=== PATIENT | female | born 1990 | race Caucasian/White ===

== ENCOUNTER 2020-09-24 09:01 | Emergency (ER) | payer MEDICAID ==
[~2020-09-24] VITALS: Ht 157.5 cm; Wt 42.0 kg
[2020-09-24 10:07] LABS: URINE HCG NEGATIVE (NEG)
[2020-09-24] MEDS ORDERED: ketorolac trometh. 30mg/ml inj. IM ONE (10:20)
[2020-09-24 10:44] VITALS: BP 97/60
== END 2020-09-24 10:46 | disposition home or self-care (01) ==
LOC: ER 09:02
DX: N92.0 Excessive and frequent menstruation with regular cycle (principal); R10.84 Generalized abdominal pain; R11.2 Nausea with vomiting, unspecified; Z79.899 Other long term (current) drug therapy
CPT/HCPCS: 81025; 96372; 99283; J1885